=== PATIENT | male | born 1985 | race African-American/Black ===

== ENCOUNTER 2018-12-06 15:27 | Emergency (ER) | payer MEDICAID ==
[~2018-12-06] VITALS: Ht 182.9 cm; Wt 73.0 kg
[2018-12-06] MEDS ORDERED: ACETAMINOPHEN 500MG TABLET PO ONE (17:45)
[2018-12-06 19:17] VITALS: BP 121/78
== END 2018-12-06 19:19 | disposition home or self-care (01) ==
LOC: ER 15:27
DX: S09.8XXA Other specified injuries of head, initial encounter (principal); R51 Headache; Y08.89XA Assault by other specified means, initial encounter; Y93.89 Activity, other specified; Y92.9 Unspecified place or not applicable
CPT/HCPCS: 99284